=== PATIENT | female | born 1970 | race Hispanic/Latino ===

== ENCOUNTER 2021-12-27 12:18 | Inpatient (IN) | payer OTHER ==
[2021-12-27] VITALS (21 sets, daily range): BP systolic 87–142; BP diastolic 42–70
[~2021-12-27] VITALS: Ht 157.5 cm; Wt 96.7 kg
[2021-12-27] MEDS: SODIUM CHLORIDE 0.9% 1000ML 1,000 ML IV SCH ×4 (12:45→20:23)
[2021-12-27] MEDS ORDERED: METRONIDAZOLE 500MG/NS 100ML 100 ML IV ONE (13:15)
[2021-12-27] MEDS ORDERED: SODIUM CHLORIDE 0.9% 1000ML 1,000 ML IV SCH (13:15)
[2021-12-27] MEDS ORDERED: CEFEPIME HCL 1 GM VIAL ONE (13:16)
[2021-12-27] MEDS ORDERED: CEFEPIME 2 GM in SODIUM CHLORIDE 0.9% 100 ML IV ONE (14:00)
[2021-12-27] MEDS ORDERED: SODIUM CHLORIDE 0.9% 1000ML 1,000 ML IV ONE (14:15)
[2021-12-27 15:05] LABS: INR 1.24; PROTHROMBIN TIME 16.7 seconds (11.9-14.5)
[2021-12-27 15:06] LABS: PARTIAL THROMBOPLASTIN TIME 37.2 seconds (23.8-35.5)
[2021-12-27] MEDS ORDERED: ASPIRIN 81 MG CHEW TAB PO ONE (16:00)
[2021-12-27] MEDS ORDERED: ONDANSETRON HCL INJ 2MG/ML 2ML 2 MG/ML VIAL IV PRN (16:00)
[2021-12-27] MEDS ORDERED: ONDANSETRON HCL INJ 2MG/ML 2ML 2 MG/ML VIAL ONE (16:25)
[2021-12-27 17:57] LABS: BASOPHILS % 0.2 % (0.0-1.0); HEMATOCRIT 39.2 % (34.2-44.1); HEMOGLOBIN 11.9 g/dL (12.0-16.0); LYMPHOCYTES # (AUTO) 0.6 (1.0-3.2); LYMPHOCYTES % 6.3 % (18.0-39.1); MEAN CORPUSCULAR HEMOGLOBIN 25.6 pg (28-32); MEAN CORPUSCULAR HGB CONC 30.4 g/dL (31-35); MEAN CORPUSCULAR VOLUME 84.3 fL (81-99); MONOCYTES # (AUTO) 0.4 (0.2-0.8); NEUTROPHILS # (AUTO) 8.3 (2.1-6.9); PLATELET COUNT 259 x10e3/uL (140-360); RED BLOOD COUNT 4.65 x10e6/uL (3.6-5.1); RED CELL DISTRIBUTION WIDTH 17.1 % (11.7-14.4)
[2021-12-27] MEDS ORDERED: NOREPINEPHRINE 8 MG/D5W 250 ML 250 ML IV SCH (18:00)
[2021-12-27 18:09] LABS: INR 1.21; PROTHROMBIN TIME 16.4 seconds (11.9-14.5)
[2021-12-27 18:10] LABS: PARTIAL THROMBOPLASTIN TIME 35.1 seconds (23.8-35.5)
[2021-12-27 18:18] LABS: CREATINE KINASE MB 3.6 ng/mL (0-5.0)
[2021-12-27 18:27] LABS: ALBUMIN 2.7 g/dL (3.5-5.0); ALBUMIN/GLOBULIN RATIO 0.6 (0.8-2.0); ANION GAP 20.8 mmol/L (8-16); CALCIUM 7.8 mg/dL (8.4-10.2); CREATININE, SERUM 5.2 mg/dL (0.57-1.11); POTASSIUM 4.8 mmol/L (3.5-5.1)
[2021-12-27] MEDS ORDERED: DEXTROSE 50% SYRINGE 50 ML IV PRN ×2 (19:45→20:00)
[2021-12-27 19:57] LABS: CHOL/HDL RATIO 5.2 (3.0-3.6)
[2021-12-27] MEDS: INSULIN GLARGINE 100 UNITS/ML VIAL SQ SCH (21:00)
[2021-12-27] MEDS: INSULIN REGULAR, HUMAN 100 UNIT/1 ML SQ SCH (21:00)
[2021-12-27] MEDS ORDERED: INSULIN REGULAR, HUMAN 100 UNIT/1 ML SQ SCH (21:00)
[2021-12-27] MEDS: LEVOFLOXACIN 250 MG TAB PO SCH (21:29)
[2021-12-27] MEDS: HEPARIN SOD (PORCINE) 5,000 UNIT/ML VIAL SC SCH (21:30)
[2021-12-27] MEDS: METRONIDAZOLE 250MG/NS 50ML 50 ML IV SCH (21:33)
[2021-12-27] MEDS ORDERED: CALCIUM CARBONATE 500 MG CHEWABLE TABS PO PRN (22:00)
[2021-12-28] VITALS (51 sets, daily range): BP systolic 76–130; BP diastolic 39–82
[2021-12-28] MEDS: ACETAMINOPHEN 325 MG TAB PO PRN ×3 (00:25→21:55)
[2021-12-28] MEDS: SODIUM CHLORIDE 0.9% 1000ML 1,000 ML IV SCH ×2 (01:42→07:00)
[2021-12-28] MEDS ORDERED: ROSUVASTATIN CA10 MG (06:30)
[2021-12-28] MEDS ORDERED: FEROSUL325 MG (06:30)
[2021-12-28] MEDS ORDERED: OMEPRAZOLE40 MG (06:30)
[2021-12-28] MEDS ORDERED: METFORMIN HCL500 MG (06:30)
[2021-12-28] MEDS ORDERED: LISINOPRIL30 MG (06:30)
[2021-12-28] MEDS ORDERED: INSULIN AS100 UNIT/5 (06:30)
[2021-12-28] MEDS ORDERED: FENOFIBRATE160 MG (06:30)
[2021-12-28] MEDS: METRONIDAZOLE 250MG/NS 50ML 50 ML IV SCH ×4 (06:34→21:40)
[2021-12-28 06:35] LABS: CLARITY,URINE CLEAR (CLEAR); COLOR,URINE YELLOW (YELLOW); KETONES,URINE NEGATIVE (NEGATIVE); LEUKOCYTE ESTERASE ,URINE NEGATIVE (NEGATIVE); NITRITE,URINE NEGATIVE (NEGATIVE); PROTEIN,URINE DIPSTICK TRACE (NEGATIVE); URINE UROBILINOGEN 0.2 mg/dL (0.2 - 1)
[2021-12-28 06:38] LABS: BACTERIA,URINE FEW /HPF; EPITHELIAL CELLS,URINE FEW /LPF; WBC,URINE (MAN) 0-5 /HPF (0-5)
[2021-12-28 07:17] LABS: BASOPHILS % 0.5 % (0.0-1.0); EOSINOPHILS % 0.1 % (0.0-6.0); HEMATOCRIT 35.7 % (34.2-44.1); HEMOGLOBIN 11.3 g/dL (12.0-16.0); LYMPHOCYTES # (AUTO) 1.2 (1.0-3.2); LYMPHOCYTES % 13.8 % (18.0-39.1); MEAN CORPUSCULAR HEMOGLOBIN 25.6 pg (28-32); MEAN CORPUSCULAR HGB CONC 31.7 g/dL (31-35); MONOCYTES # (AUTO) 0.2 (0.2-0.8); NEUTROPHILS # (AUTO) 6.9 (2.1-6.9); PLATELET COUNT 224 x10e3/uL (140-360); RED BLOOD COUNT 4.41 x10e6/uL (3.6-5.1); RED CELL DISTRIBUTION WIDTH 16.5 % (11.7-14.4)
[2021-12-28] MEDS: INSULIN REGULAR, HUMAN 100 UNIT/1 ML SQ SCH ×4 (07:30→20:17)
[2021-12-28 07:37] LABS: ALBUMIN 2.4 g/dL (3.5-5.0); ALBUMIN/GLOBULIN RATIO 0.6 (0.8-2.0); ANION GAP 17.1 mmol/L (8-16); CALCIUM 7.6 mg/dL (8.4-10.2); CREATININE, SERUM 3.82 mg/dL (0.57-1.11); POTASSIUM 4.1 mmol/L (3.5-5.1)
[2021-12-28 07:59] LABS: CREATINE KINASE MB 2.5 ng/mL (0-5.0)
[2021-12-28] MEDS ORDERED: SODIUM BICARBONATE 8.4% 50 ML in SODIUM CHLORIDE 0.45% 1,000 ML IV SCH (08:15)
[2021-12-28] MEDS: FAMOTIDINE 20 MG/2 ML VIAL IV SCH ×2 (08:17→17:07)
[2021-12-28] MEDS: HEPARIN SOD (PORCINE) 5,000 UNIT/ML VIAL SC SCH ×2 (08:18→21:47)
[2021-12-28] MEDS ORDERED: LOPERAMIDE HCL 2 MG CAP PO PRN (08:30)
[2021-12-28] MEDS: SODIUM BICARBONATE 8.4% 75 ML in SODIUM CHLORIDE 0.45% 1,000 ML IV SCH ×2 (12:50→21:00)
[2021-12-28 14:06] LABS: CREATININE,URINE RANDOM 22.05 mg/dL (47-110)
[2021-12-28 19:45] LABS: CREATINE KINASE 78 IU/L (29-168)
[2021-12-28] MEDS: LEVOFLOXACIN 250 MG TAB PO SCH (19:50)
[2021-12-28] MEDS: INSULIN GLARGINE 100 UNITS/ML VIAL SQ SCH (21:48)
[2021-12-29] VITALS (21 sets, daily range): BP systolic 85–125; BP diastolic 51–86
[2021-12-29] MEDS: SODIUM BICARBONATE 8.4% 75 ML in SODIUM CHLORIDE 0.45% 1,000 ML IV SCH ×2 (03:52→08:10)
[2021-12-29 05:58] LABS: BASOPHILS % 0.6 % (0.0-1.0); EOSINOPHILS # (AUTO) 0.1 (0.0-0.4); EOSINOPHILS % 1.2 % (0.0-6.0); HEMOGLOBIN 10.2 g/dL (12.0-16.0); LYMPHOCYTES % 15.2 % (18.0-39.1); MEAN CORPUSCULAR HEMOGLOBIN 25.1 pg (28-32); MEAN CORPUSCULAR HGB CONC 31.9 g/dL (31-35); MEAN CORPUSCULAR VOLUME 78.8 fL (81-99); MONOCYTES # (AUTO) 0.6 (0.2-0.8); MONOCYTES % 8.1 % (4.4-11.3); NEUTROPHILS % 74.2 % (38.7-80.0); PLATELET COUNT 226 x10e3/uL (140-360); RED BLOOD COUNT 4.06 x10e6/uL (3.6-5.1); RED CELL DISTRIBUTION WIDTH 16.5 % (11.7-14.4)
[2021-12-29] MEDS: METRONIDAZOLE 250MG/NS 50ML 50 ML IV SCH ×3 (06:03→23:24)
[2021-12-29 06:13] LABS: ALBUMIN 2.1 g/dL (3.5-5.0); ALBUMIN/GLOBULIN RATIO 0.6 (0.8-2.0); ANION GAP 14.2 mmol/L (8-16); CALCIUM 8.1 mg/dL (8.4-10.2); CREATININE, SERUM 2.07 mg/dL (0.57-1.11); POTASSIUM 3.2 mmol/L (3.5-5.1)
[2021-12-29 07:03] LABS: MAGNESIUM 1.5 MG/DL (1.3-2.1); PHOSPHORUS 2.5 MG/DL (2.3-4.7)
[2021-12-29] MEDS: ACETAMINOPHEN 325 MG TAB PO PRN (07:16)
[2021-12-29] MEDS: INSULIN REGULAR, HUMAN 100 UNIT/1 ML SQ SCH ×4 (07:29→21:00)
[2021-12-29] MEDS: HEPARIN SOD (PORCINE) 5,000 UNIT/ML VIAL SC SCH ×2 (08:10→21:00)
[2021-12-29] MEDS: FAMOTIDINE 20 MG/2 ML VIAL IV SCH ×2 (08:10→17:14)
[2021-12-29] MEDS ORDERED: POTASSIUM CHLORIDE 20 MEQ TAB CR PO ONE (10:00)
[2021-12-29] MEDS ORDERED: POTASSIUM CHLORIDE 20 MEQ TAB CR PO STA (11:35)
[2021-12-29] MEDS: KCL 20MEQ/.9 SOD CHL 1,000 ML IV SCH (12:47)
[2021-12-29] MEDS: LEVOFLOXACIN 250 MG TAB PO SCH (20:00)
[2021-12-29] MEDS: INSULIN GLARGINE 100 UNITS/ML VIAL SQ SCH (21:00)
[2021-12-30] VITALS (7 sets, daily range): BP systolic 108–138; BP diastolic 66–86
[2021-12-30] MEDS: KCL 20MEQ/.9 SOD CHL 1,000 ML IV SCH ×2 (02:19→14:25)
[2021-12-30] MEDS: METRONIDAZOLE 250MG/NS 50ML 50 ML IV SCH ×3 (06:07→21:30)
[2021-12-30 07:03] LABS: BASOPHILS % 0.5 % (0.0-1.0); EOSINOPHILS # (AUTO) 0.2 (0.0-0.4); EOSINOPHILS % 2.2 % (0.0-6.0); HEMATOCRIT 34.3 % (34.2-44.1); HEMOGLOBIN 10.8 g/dL (12.0-16.0); LYMPHOCYTES # (AUTO) 1.9 (1.0-3.2); LYMPHOCYTES % 23.7 % (18.0-39.1); MEAN CORPUSCULAR HEMOGLOBIN 25.2 pg (28-32); MEAN CORPUSCULAR HGB CONC 31.5 g/dL (31-35); MONOCYTES # (AUTO) 0.7 (0.2-0.8); MONOCYTES % 8.8 % (4.4-11.3); NEUTROPHILS # (AUTO) 4.9 (2.1-6.9); NEUTROPHILS % 61.9 % (38.7-80.0); PLATELET COUNT 287 x10e3/uL (140-360); RED BLOOD COUNT 4.29 x10e6/uL (3.6-5.1); RED CELL DISTRIBUTION WIDTH 16.2 % (11.7-14.4)
[2021-12-30] MEDS: INSULIN REGULAR, HUMAN 100 UNIT/1 ML SQ SCH ×4 (07:30→21:30)
[2021-12-30 07:36] LABS: ALBUMIN 2.4 g/dL (3.5-5.0); ALBUMIN/GLOBULIN RATIO 0.5 (0.8-2.0); ANION GAP 15.4 mmol/L (8-16); CALCIUM 9.1 mg/dL (8.4-10.2); CREATININE, SERUM 1.38 mg/dL (0.57-1.11); MAGNESIUM 1.6 MG/DL (1.3-2.1); PHOSPHORUS 3.5 MG/DL (2.3-4.7); POTASSIUM 3.4 mmol/L (3.5-5.1)
[2021-12-30] MEDS: FAMOTIDINE 20 MG/2 ML VIAL IV SCH ×2 (11:18→17:02)
[2021-12-30] MEDS: HEPARIN SOD (PORCINE) 5,000 UNIT/ML VIAL SC SCH ×2 (11:25→22:30)
[2021-12-30] MEDS: INSULIN GLARGINE 100 UNITS/ML VIAL SQ SCH (21:30)
[2021-12-30] MEDS: LEVOFLOXACIN 250 MG TAB PO SCH (21:30)
[2021-12-30] MEDS ORDERED: SIMETHICONE 80 MG CHEW PO PRN (23:45)
[2021-12-31 01:47] VITALS: BP 122/72
[2021-12-31 03:55] VITALS: BP 122/72
[2021-12-31] MEDS: KCL 20MEQ/.9 SOD CHL 1,000 ML IV SCH (03:59)
[2021-12-31 05:20] VITALS: BP 113/75
[2021-12-31] MEDS: METRONIDAZOLE 250MG/NS 50ML 50 ML IV SCH (05:39)
[2021-12-31] MEDS: INSULIN REGULAR, HUMAN 100 UNIT/1 ML SQ SCH ×2 (07:30→12:09)
[2021-12-31 07:46] VITALS: BP 110/84
[2021-12-31] MEDS: FAMOTIDINE 20 MG/2 ML VIAL IV SCH (09:03)
[2021-12-31 09:09] LABS: BASOPHILS # (AUTO) 0.1 (0.0-0.1); BASOPHILS % 0.8 % (0.0-1.0); EOSINOPHILS # (AUTO) 0.2 (0.0-0.4); EOSINOPHILS % 2.1 % (0.0-6.0); HEMATOCRIT 35.7 % (34.2-44.1); HEMOGLOBIN 11.2 g/dL (12.0-16.0); LYMPHOCYTES # (AUTO) 2.3 (1.0-3.2); LYMPHOCYTES % 27.3 % (18.0-39.1); MEAN CORPUSCULAR HEMOGLOBIN 25.3 pg (28-32); MEAN CORPUSCULAR HGB CONC 31.4 g/dL (31-35); MEAN CORPUSCULAR VOLUME 80.6 fL (81-99); MONOCYTES # (AUTO) 0.9 (0.2-0.8); MONOCYTES % 10.6 % (4.4-11.3); NEUTROPHILS # (AUTO) 3.9 (2.1-6.9); NEUTROPHILS % 47.2 % (38.7-80.0); PLATELET COUNT 294 x10e3/uL (140-360); RED BLOOD COUNT 4.43 x10e6/uL (3.6-5.1); RED CELL DISTRIBUTION WIDTH 16.2 % (11.7-14.4)
[2021-12-31] MEDS: HEPARIN SOD (PORCINE) 5,000 UNIT/ML VIAL SC SCH (09:13)
[2021-12-31 09:30] LABS: ANION GAP 16.6 mmol/L (8-16); CALCIUM 8.8 mg/dL (8.4-10.2); CREATININE, SERUM 1.09 mg/dL (0.57-1.11); POTASSIUM 3.6 mmol/L (3.5-5.1)
[2021-12-31] MEDS ORDERED: SIMETHICONE80 MG PO (10:28)
[2021-12-31] MEDS ORDERED: METRONIDAZOLE500 MG PO (10:28)
[2021-12-31] MEDS ORDERED: CEPHALEXIN500 MG PO (10:28)
[2021-12-31] MEDS ORDERED: ONDANSETRON ODT4 MG PO (10:28)
[2021-12-31 11:07] VITALS: BP 116/76
[2021-12-31] MEDS ORDERED: ONDANSETRON HCL 4 MG ORAL DISINTEGRATING TAB PO PRN (12:30)
[2021-12-31] MEDS ORDERED: METRONIDAZOLE 500 MG TAB PO SCH (14:00)
[2021-12-31] MEDS ORDERED: FAMOTIDINE 20 MG TAB PO SCH (16:30)
== END 2021-12-31 12:56 | disposition home or self-care (01) | DRG 871 ==
LOC: FSED 12:25 → ERHOLD 16:09 → ICU 19:17 → MED/SURG3 12-29 15:28
PROVIDERS: ADMIT Internal Medicine; ATTEND Internal Medicine
PROC: 3E033XZ Introduction of Vasopressor into Peripheral Vein, Percutaneous Approach (ICD-10-PCS; principal; 2021-12-27)
PROC: 3E03329 Introduction of Other Anti-infective into Peripheral Vein, Percutaneous Approach (ICD-10-PCS; 2021-12-27)
DX: A41.9 Sepsis, unspecified organism (principal); R65.21 Severe sepsis with septic shock; J96.01 Acute respiratory failure with hypoxia; N17.0 Acute kidney failure with tubular necrosis; A09 Infectious gastroenteritis and colitis, unspecified; Z68.42 Body mass index [BMI] 45.0-49.9, adult; E11.22 Type 2 diabetes mellitus with diabetic chronic kidney disease; D64.9 Anemia, unspecified; E86.0 Dehydration; E11.65 Type 2 diabetes mellitus with hyperglycemia; E78.5 Hyperlipidemia, unspecified; E66.01 Morbid (severe) obesity due to excess calories; K21.9 Gastro-esophageal reflux disease without esophagitis; N18.30 Chronic kidney disease, stage 3 unspecified; I12.9 Hypertensive chronic kidney disease with stage 1 through stage 4 chronic kidney disease, or unspecified chronic kidney disease; E87.6 Hypokalemia; Z20.822 Contact with and (suspected) exposure to COVID-19; Z79.4 Long term (current) use of insulin; Z90.49 Acquired absence of other specified parts of digestive tract
CPT/HCPCS: 36415; 51700; 71250; 74176; 76770; 80048; 80053; 80061; 80076; 81001; 81003; 82550; 82553; 82570; 82948; 83036; 83605; 83735; 84100; 84300; 84484; 85025; 85610; 85730; 87040; 87045; 87493; 93005; 96372; 99285; J0692; J1644; J1815; J1817; J2405; J7030

== ENCOUNTER 2022-04-01 21:03 | Emergency (ER) | payer OTHER ==
[~2022-04-01] VITALS: Ht 157.5 cm; Wt 96.6 kg
[~2022-04-01 21:03] MED LIST: CEPHALEXIN500 MG PO; FENOFIBRATE160 MG; FEROSUL325 MG; INSULIN AS100 UNIT/5; LISINOPRIL30 MG; METFORMIN HCL500 MG; METRONIDAZOLE500 MG PO; OMEPRAZOLE40 MG; ONDANSETRON ODT4 MG PO; ROSUVASTATIN CA10 MG; SIMETHICONE80 MG PO
[2022-04-01] MEDS ORDERED: PANTOPRAZOLE SO40 MG PO (23:20)
[2022-04-01] MEDS ORDERED: ONDANSETRON ODT4 MG PO (23:20)
== END 2022-04-01 23:34 | disposition home or self-care (01) ==
LOC: FSED 21:06
DX: R10.13 Epigastric pain (principal); E11.65 Type 2 diabetes mellitus with hyperglycemia; I10 Essential (primary) hypertension; E78.5 Hyperlipidemia, unspecified
CPT/HCPCS: 74176; 80053; 80076; 81003; 85025; 99283

== ENCOUNTER 2023-07-27 22:43 | Emergency (ER) | payer SELFPAY ==
[~2023-07-27] VITALS: Ht 157.5 cm; Wt 96.6 kg
[~2023-07-27 22:43] MED LIST changes: +PANTOPRAZOLE SO40 MG PO
[2023-07-27] MEDS ORDERED: FAMOTIDINE 20 MG/2 ML VIAL IV STA (23:18)
[2023-07-27] MEDS ORDERED: KETOROLAC TROMETHAMINE 30 MG/ML VIAL IV STA (23:18)
[2023-07-27] MEDS ORDERED: SODIUM CHLORIDE 0.9% 1000ML 1,000 ML IV SCH (23:30)
[2023-07-27] MEDS ORDERED: KETOROLAC TROMETHAMINE 30 MG/ML VIAL ONE (23:38)
[2023-07-27] MEDS ORDERED: FAMOTIDINE 20 MG/2 ML VIAL IV ONE (23:38)
[2023-07-27] MEDS ORDERED: SODIUM CHLORIDE 0.9% 1000ML 1,000 ML ONE (23:38)
[2023-07-28] MEDS ORDERED: IOPAMIDOL 370 MG/ML 100 ML INFUS..BTL INJ ONE
[2023-07-28] MEDS ORDERED: KETOROLAC TROMETHAMINE 30 MG/ML VIAL IV STA (00:46)
[2023-07-28] MEDS ORDERED: KETOROLAC TROMETHAMINE 30 MG/ML VIAL ONE (00:54)
[2023-07-28 01:06] VITALS: O2SAT 98
[2023-07-28] MEDS ORDERED: PANTOPRAZOLE SO40 MG PO (01:08)
== END 2023-07-28 01:16 | disposition home or self-care (01) ==
LOC: FSED 22:47
DX: R10.13 Epigastric pain (principal); K29.70 Gastritis, unspecified, without bleeding; N28.89 Other specified disorders of kidney and ureter; E11.65 Type 2 diabetes mellitus with hyperglycemia; E78.5 Hyperlipidemia, unspecified; E78.1 Pure hyperglyceridemia; R94.31 Abnormal electrocardiogram [ECG] [EKG]
CPT/HCPCS: 74177; 80048; 80076; 81003; 82553; 84484; 85025; 99284; J1885 ×2; J7030; Q9967; 93005

== ENCOUNTER → 2023-11-04 | Outpatient (REF) | payer OTHER ==
[~2023-11-04] MED LIST changes: +FUROSEMIDE40 MG PO; +GADOBENATE DIMEGLUMINE IV ONE; +HYD RC; +KLOR-CON M1010 MEQ PO; +LISINOPRIL10 MG PO; +METFORMIN HCL500 M1 PO; +METFORMIN HCL500 M2 PO; -METFORMIN HCL500 MG; +METFORMIN HCL500 MG PO; -ROSUVASTATIN CA10 MG; +ROSUVASTATIN CA10 MG PO; +SENOKOT-S TABL1 EACH PO; +ZETIA10 MG PO; +[UNRECOGNIZED DRUG - OTHER]
== END ==
LOC: MRI 07:25
PROVIDERS: ATTEND Urology
DX: D41.01 Neoplasm of uncertain behavior of right kidney (principal); N28.1 Cyst of kidney, acquired; R31.21 Asymptomatic microscopic hematuria
CPT/HCPCS: 74183

== ENCOUNTER → 2024-04-25 | Outpatient (REF) | payer OTHER ==
[~2024-04-25] MED LIST changes: +ASPIRIN81 MG PO; +AUGMENTIN 875 MG PO; +CARVEDILOL3.125 MG PO; +DOXYCYCLINE MO100 MG PO; -GADOBENATE DIMEGLUMINE IV ONE; +JARDIANCE10 MG PO; +LYRICA75 MG PO; +NOVOLIN 70100 UNIT/3 SQ; +ULTRAM 50MG50 MG PO; +[UNRECOGNIZED DRUG - OTHER] PO
== END ==
LOC: US 11:47
PROVIDERS: ATTEND Urology
DX: C64.1 Malignant neoplasm of right kidney, except renal pelvis (principal)
CPT/HCPCS: 71046; 76770; 76857

== ENCOUNTER 2024-05-27 19:23 | Emergency (ER) | payer OTHER ==
[~2024-05-27] VITALS: Ht 162.6 cm; Wt 98.4 kg
[2024-05-27 20:16] VITALS: PULSE 90; RESP 18; TEMP 97.8
[2024-05-27] MEDS: KETOROLAC TROMETHAMINE 30 MG/ML VIAL IV STA (21:03)
[2024-05-27 22:12] VITALS: BP 118/59; PULSE 76; RESP 18; TEMP 96.2; O2SAT 96
== END 2024-05-27 22:12 | disposition home or self-care (01) ==
LOC: FSED 19:42
DX: K62.5 Hemorrhage of anus and rectum (principal); K64.4 Residual hemorrhoidal skin tags; I10 Essential (primary) hypertension; R07.89 Other chest pain; R94.31 Abnormal electrocardiogram [ECG] [EKG]
CPT/HCPCS: 71046; 80053; 82553; 84484; 85025; 85379; 85610; 93005; 99283; J1885

== ENCOUNTER → 2024-07-07 | Outpatient (REF) | payer OTHER | LOC: US 08:50 | PROVIDERS: ATTEND Urology | DX: C64.1 Malignant neoplasm of right kidney, except renal pelvis (principal) | CPT/HCPCS: 71046; 76770; 76857 ==

== ENCOUNTER → 2024-10-12 | Outpatient (REF) | payer OTHER | LOC: US 07:55 | PROVIDERS: ATTEND Urology | DX: C64.1 Malignant neoplasm of right kidney, except renal pelvis (principal) | CPT/HCPCS: 71046; 76770; 76857 ==

== ENCOUNTER 2025-02-02 14:14 | Emergency (ER) | payer OTHER ==
[2025-02-02] MEDS: KETOROLAC TROMETHAMINE 30 MG/ML VIAL IV STA (15:18)
[2025-02-02] MEDS: ONDANSETRON HCL INJ 2MG/ML 2ML 2 MG/ML VIAL IV STA (15:18)
[2025-02-02] MEDS: SODIUM CHLORIDE 0.9% 1000ML 1,000 ML IV ONE (15:18)
[2025-02-02] MEDS: ACETAMINOPHEN 1000 MG/100 ML IV STA (16:26)
[2025-02-02] MEDS ORDERED: IOPAMIDOL 370 MG/ML 100 ML INFUS..BTL INJ ONE (18:01)
[2025-02-02 19:30] VITALS: PULSE 81; RESP 18; TEMP 99.2; O2SAT 91
[2025-02-02] MEDS ORDERED: CEFTRIAXONE 1 GM VIAL IV ONE (19:30)
[2025-02-02] MEDS: ACETAMINOPHEN 325 MG TAB PO ONE (19:41)
[2025-02-02] MEDS: CEPHALEXIN MONOHYDRATE 250 MG CAP PO ONE (19:42)
[2025-02-02] MEDS ORDERED: CEFPODOXIME PR200 MG PO (19:48)
[2025-02-02 19:51] VITALS: BP 101/53; PULSE 81; RESP 18; TEMP 99.2
== END 2025-02-02 20:04 | disposition home or self-care (01) ==
LOC: FSED 14:32
DX: D72.829 Elevated white blood cell count, unspecified (principal); N39.0 Urinary tract infection, site not specified; E11.65 Type 2 diabetes mellitus with hyperglycemia; E78.5 Hyperlipidemia, unspecified; Z11.52 Encounter for screening for COVID-19
CPT/HCPCS: 0223U; 71046; 74177; 80053; 80076; 81003; 83518; 85025; 87400; 99284; J0131; J1885; J2405; J7030; Q9967

== ENCOUNTER 2025-02-27 15:57 | Emergency (ER) | payer OTHER ==
[~2025-02-27] VITALS: Ht 160 cm; Wt 106.6 kg
[~2025-02-27 15:57] MED LIST changes: +CEFPODOXIME PR200 MG PO
[2025-02-27] MEDS: KETOROLAC TROMETHAMINE 30 MG/ML VIAL IV STA (17:25)
[2025-02-27] MEDS: FAMOTIDINE 20 MG/2 ML VIAL IV STA (17:25)
[2025-02-27] MEDS: ONDANSETRON HCL INJ 2MG/ML 2ML 2 MG/ML VIAL IV STA (17:25)
[2025-02-27] MEDS ORDERED: IOPAMIDOL 370 MG/ML 100 ML INFUS..BTL INJ ONE (17:58)
[2025-02-27] MEDS ORDERED: ONDANSETRON ODT4 MG PO (20:50)
[2025-02-27 20:51] VITALS: PULSE 75; RESP 18; TEMP 98.3
[2025-02-27] MEDS ORDERED: OMEPRAZOLE40 MG PO (20:59)
[2025-02-27 21:03] VITALS: BP 109/55; PULSE 75; RESP 18; TEMP 97.9; O2SAT 97
== END 2025-02-27 21:07 | disposition home or self-care (01) ==
LOC: FSED 16:02
DX: R10.13 Epigastric pain (principal); R11.0 Nausea; I10 Essential (primary) hypertension; E13.8 Other specified diabetes mellitus with unspecified complications; E78.5 Hyperlipidemia, unspecified; R94.31 Abnormal electrocardiogram [ECG] [EKG]
CPT/HCPCS: 74177; 80048; 80076; 81003; 84484; 85025; 93005; 96374; 96375; 99284; J1308; J1885; J2405; J2470; Q9967